=== PATIENT | male | born 1965 | race Caucasian/White ===

== ENCOUNTER 2021-01-19 15:21 | Emergency (ER) | payer MEDICAID ==
[~2021-01-19] VITALS: Ht 170.2 cm; Wt 73.0 kg
[2021-01-19 15:26] VITALS: BP 132/87
[2021-01-19] MEDS ORDERED: IBUP-2028 MT (17:41)
[2021-01-19] MEDS ORDERED: IBUPROFEN 600MG TABLET PO ONE (17:45)
[2021-01-19] MEDS ORDERED: BACITRACIN ZINC OINT UDPKT TOP ONE (17:45)
== END 2021-01-19 19:31 | disposition home or self-care (01) ==
LOC: ER 15:21
DX: S83.92XA Sprain of unspecified site of left knee, initial encounter (principal); S63.502A Unspecified sprain of left wrist, initial encounter; S53.402A Unspecified sprain of left elbow, initial encounter; V29.9XXA Motorcycle rider (driver) (passenger) injured in unspecified traffic accident, initial encounter; Y93.55 Activity, bike riding; Y92.410 Unspecified street and highway as the place of occurrence of the external cause; Z98.890 Other specified postprocedural states
CPT/HCPCS: 73080; 73110; 73130; 73560; 99284